=== PATIENT | male | born 1965 | race Caucasian/White ===

== ENCOUNTER → 2016-11-18 | Outpatient (CLI) | payer BC ==
--- NOTE | 2016-11-19 07:35 | PN ---
This patient is 51 with diagnosis of obstructive sleep apnea. He was given an AHI of 26 consistent with moderate severe disease and he is on CPAP pressure 12 cm water. I am seeing him for a ( ) follow-up. He is using a Mirage Quattro full face mask. His CPAP over the past month is 27 out of 30 and his CPAP use for more than 4 hours is 26 out of 30. He is averaging 7 hours of CPAP use per night. His leak factor is 46 L per minute. AHI is down to 4.6. He is doing well. Awake and alert during the day. No new complaints. For now, he is stabilized from treatment. His [place] score is at 8. BP is 117/73. Pulse 78. Respiratory rate 16. Temperature 98.0. Saturation 96% on room air. Weight is 251 which is up by another 9 pounds compared to two years ago. Height is 5 feet 9 inches. BMI 37.2. General appearance, calm, comfortable. HEENT: Short neck, crowding of posterior pharynx. There is no goiter. No neck masses. Lungs clear to auscultation. Heart sounds regular rate and rhythm. Normal S1, S2. No S3, no murmurs. Abdomen soft. Nontender. No organomegaly. Extremities no cyanosis, clubbing or edema. IMPRESSION: 1. Obstructive sleep apnea, moderate to severe, AHI 26, benefitting from treatment at pressure 12 cm water with adequate compliancy. 2. Obesity with interval 9 pound weight gain over the past two years. BMI is up to 37. 3. Hypertension. 4. Bronchial asthma. 5. Hypothyroidism. 6. Obesity. PLAN: 1. Proceed with the same CPAP pressure. 2. Renewal of the CPAP mask, supplies, ( ) filters and humidity chamber. 3. See me back in a year or two, earlier if needed. We will continue to follow. His treatment is successful for now. CHANTELL
== END ==
LOC: SLEEP 15:13
PROVIDERS: ATTEND Internal Medicine Critical Care Medicine
DX: E66.9 Obesity, unspecified (principal); E03.9 Hypothyroidism, unspecified; I10 Essential (primary) hypertension; J45.909 Unspecified asthma, uncomplicated; Z68.37 Body mass index [BMI] 37.0-37.9, adult; G47.33 Obstructive sleep apnea (adult) (pediatric)

== ENCOUNTER → 2020-03-07 | Outpatient (CLI) | payer BC ==
--- NOTE | 2020-03-07 14:15 | CONS ---
CONSULTATION DATE OF SERVICE: 03/07/2020 A 55-year-old gentleman who has been evaluated in the Sleep Center for obstructive sleep apnea-hypopnea syndrome. HISTORY OF PRESENT ILLNESS/SLEEP WAKE EVALUATION: Patient has history of moderate to severe obstructive sleep apnea since 2014. Since that time, he is on treatment with CPAP. He continued treatment every night for the whole night, recently increased weight from 230 pounds up to around 250 pounds. In the morning sometimes wakes up tired, has history of sexual dysfunction, but denying any sleepiness while driving. [place] Sleepiness Scale is 9. His sleep schedule from 9:30 - 10 p.m. until 5:30 a.m. No problems with falling asleep. No TV in bedroom. He sleeps in different position. He may wake up from sleep up to 3 times, but does not have any episodes of nocturia. No unusual movements during sleep. No kicking at night. No history of hypnagogic hallucinations, sleep paralysis or cataplexy. PAST MEDICAL HISTORY: Positive for bronchial asthma, hypertension, hypothyroidism, acid reflux. PAST SURGICAL HISTORY: Vasectomy. MEDICATIONS: Advair disc 10-50 once a day. Levothyroxine 25 mcg once a day, omeprazole 40 mg once a day, Atenolol 25 mg once a day, lisinopril 10 mg once a day, Sertraline 50 mg once a day, Zetia 10 mg once a day, Loratadine time 10 mg once a day, ibuprofen as needed, vitamin D3 and E supplement. SOCIAL HISTORY: Negative for smoking or using alcohol. FAMILY HISTORY: Hypertension, hyperlipidemia, arthritis, snoring, thyroid problems. REVIEW OF SYSTEMS: Sometimes awakenings from sleep. PHYSICAL EXAM: Patient in no distress, BP 128/65, HR 70, RR 15, height 5, 9-1/2, weight 249, BMI 36.2, temperature 97.8, oxygen saturation at room air 96%. OROPHARYNX: Low position of soft palate, wide neck 19 inches in circumference. ABDOMEN: Obese. NECK: Supple, no JVD. Thyroid is not palpable. LUNGS: Clear to percussion and to auscultation. Good air exchange. No wheezing or rhonchi. HEART: S1, S2 regular. No murmurs, gallops, or rubs. EXTREMITIES: No clubbing or cyanosis. CLIENT PROJECT COORDINATOR: Awake, alert, and oriented X3. Cranial nerves 2 to 7 intact. There is no fasciculation or atrophy. noted. No focal deficits observed. I checked the patient's CPAP unit. CPAP pressure is 12 cm of water, usage for the last month 29/30 nights with average usage 7.3 hours per night. Leak is 40 L/minute. Apnea- hypopnea index 2.3. I checked usage for the year is 364 nights out of 365 nights and 352 nights out of 365 nights for more than 4 hours. Average usage is 7.4 hours. Apnea-hypopnea index 2.8, which is normal. IMPRESSION: 1. Moderate obstructive sleep apnea-hypopnea syndrome. Apnea-hypopnea index 26 by results of polysomnogram about 5 years ago. Patient demonstrated 100% compliance with treatment, benefitting from treatment, normal respiration on CPAP. 2. Obesity, the patient increased his weight about 20 pounds since titration. 3. Asthma. 4. Hypertension. 5. Hypothyroidism. 6. Acid reflux. 7. Status post vasectomy. PLAN: 1. I increased pressure in CPAP unit to 13 cm of water. 2. Patient will continue to use CPAP equipment every night for the whole night. 3. Losing weight. 4. Sleep hygiene with regular time in bed for at least 7-1/2 - 8 hours. 5. Precautions related to driving. 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 No driving if feeling sleepiness. Patient promised to follow recommendations. He is aware of civil and criminal liability for unsafe driving. 6. Prescription for all necessary CPAP supplies, including full-face mask, heated tube, filters. Thank you very much for allowing me to participate in the management of your patient. Sincerely, Flakito Pearce MD, PhD, FAASM Diplomat of [place] [employer] [place] [employer] Counter Help of [facility] [place] MMODL / IJN: [id number] /
== END | disposition home or self-care (01) ==
LOC: SLEEP 11:20
PROVIDERS: ATTEND Internal Medicine
DX: G47.33 Obstructive sleep apnea (adult) (pediatric) (principal); J45.909 Unspecified asthma, uncomplicated; I10 Essential (primary) hypertension; E03.9 Hypothyroidism, unspecified; M19.90 Unspecified osteoarthritis, unspecified site; K21.9 Gastro-esophageal reflux disease without esophagitis; Z98.52 Vasectomy status; E66.9 Obesity, unspecified; Z99.89 Dependence on other enabling machines and devices; Z79.51 Long term (current) use of inhaled steroids; Z79.891 Long term (current) use of opiate analgesic; Z79.1 Long term (current) use of non-steroidal anti-inflammatories (NSAID); Z79.890 Hormone replacement therapy
CPT/HCPCS: 99211

== ENCOUNTER → 2020-10-25 | Outpatient (CLI) | payer BC ==
--- NOTE | 2020-10-25 14:58 | SFUN ---
SLEEP CENTER FOLLOW UP NOTE DATE OF SERVICE: 10/25/2020 55-year-old gentleman has been followed in Sleep Center for treatment of obstructive sleep apnea-hypopnea syndrome. Patient continued to use his CPAP equipment every night for the whole night. During previous visit, I increased his pressure in his CPAP unit to 13. He feels okay with that pressure. [place] Sleepiness Scale today is 8, which is in normal range. I checked his CPAP unit, pressure is 13 cm of water, usage is 28/30 nights for more than 4 hours with average usage 6.6 hours per night, which is good compliance. Leak is 24 L/minute which is borderline. Apnea-hypopnea index is 1.6, which is normal range. MEDICATIONS: Advair Diskus 100 mcg, 50 mcg dose powder for inhalation, atenolol 25 mg once a day, levothyroxine 25 mcg once a day, lisinopril 10 mg once a day. Loratadine 10 mg once a day. Omeprazole 40 mg delayed release once a day, sertraline 50 mg once a day, Zetia 10 mg once a day. Supplements with vitamin C and D, zinc, Livalo 2 mg once a day at bedtime. PHYSICAL EXAMINATION: GENERAL: Patient in no distress. BP 112/68, HR 66, RR 15, height 5 feet 9 inches and a half, weight 229, body mass index 33.3, temperature 97.7, oxygen saturation at room air 97% Oropharynx: Low position of soft palate. NECK: Supple, no JVD. Thyroid is not palpable. LUNGS: Clear to percussion and to auscultation. Good air exchange. No wheezing or rhonchi. HEART: S1, S2 regular. No murmurs, gallops, or rubs. ABDOMEN: Slightly obese. Soft and nontender. Bowel sounds are present. No organomegaly appreciated. EXTREMITIES: No clubbing or cyanosis. SUPERVISOR LOCOMOTIVE: Awake, alert, and oriented X3. Cranial nerves 2 to 7 intact. There is no fasciculation or atrophy. noted. No focal deficits observed. IMPRESSION: 1. Obstructive sleep apnea-hypopnea syndrome; apnea-hypopnea index 26 by results of polysomnogram 5 years ago. Patient continues to use his equipment practically every night. Good compliance. Normal aspiration on CPAP. 2. Obesity. 3. Asthma. 4. Hypertension. 5. Hypothyroidism. 6. Acid reflux. 7. Status post colectomy. PLAN: 1. Patient will continue to use PAP equipment every night for the whole night. 2. Sleep hygiene with regular time in bed for at least 7-1/2 to 8 hours. 3. Precautions related to driving. No driving if feeling sleepiness. 4. I will maintain all necessary prescription for PAP supplies including mask, tube, filters. 5. Watching weight. 6. Follow-up visit in 6 months or earlier if patient has any problems. I spent with the patient and documentation, 30 minutes. Thank you very much for allowing me to participate in management of your patient. Sincerely, Flakito Pearce MD, PhD, FAASM Diplomat of [employer] Sleep Medicine Board of [employer] Check Scaler of [facility] [place] KAILYN / OVI: [id number] /
== END ==
LOC: SLEEP 09:53
PROVIDERS: ATTEND Internal Medicine
DX: G47.33 Obstructive sleep apnea (adult) (pediatric) (principal); E66.9 Obesity, unspecified; J45.909 Unspecified asthma, uncomplicated; I10 Essential (primary) hypertension; E03.9 Hypothyroidism, unspecified; K21.9 Gastro-esophageal reflux disease without esophagitis; Z90.49 Acquired absence of other specified parts of digestive tract; Z79.890 Hormone replacement therapy; Z79.51 Long term (current) use of inhaled steroids; Z79.899 Other long term (current) drug therapy

== ENCOUNTER → 2021-05-01 | Outpatient (CLI) | payer BC ==
--- NOTE | 2021-05-01 20:38 | SFUN ---
SLEEP CENTER FOLLOW UP NOTE DATE OF SERVICE: 05/01/2021 This 56-year-old gentleman has been followed in Sleep Center for treatment of obstructive sleep apnea-hypopnea syndrome. The patient continues to use his CPAP equipment every night for the whole night, getting his supplies on time. [place] Sleepiness Scale today is 5. I checked his CPAP unit. The humidifier chamber is wet. CPAP pressure is 13 cm of water. Usage is 100% of nights for more than 4 hours, average 6.9 hours per night. Leak is 41 L/minute, which is slightly high. At the same time, apnea-hypopnea index is 2.3, which is normal. MEDICATIONS: 1. Advair 1 puff a day. 2. Atenolol 25 mg once a day. 3. Levothyroxine 25 mcg once a day. 4. Lisinopril 10 mg once a day. 5. Loratadine 10 mg once a day. 6. Omeprazole 40 mg once a day. 7. Sertraline 50 mg once a day. 8. Vitamin C, D3, E supplements. 9. Zetia 10 mg once a day. 10. 2 mg once a day. PHYSICAL EXAMINATION: GENERAL: Pleasant gentleman without distress. VITAL SIGNS: BP 115/72, HR 77, RR 14, height 5 feet 9 inches, weight 202.2, temperature 97.8, oxygen saturation at room air 96%. Body mass index 28.9. HEENT: PERRLA, EOMI, evaluation of oropharynx showed tongue protrudes midline. Low position of soft palate. NECK: Supple, no JVD. Thyroid is not palpable. LUNGS: Clear to percussion and to auscultation. Good air exchange. No wheezing or rhonchi. HEART: S1, S2 regular. No murmurs, gallops, or rubs. ABDOMEN: Soft and nontender. Bowel sounds are present. No organomegaly appreciated. EXTREMITIES: No clubbing or cyanosis. INSIGHTS MANAGER: Awake, alert, and oriented X3. Cranial nerves 2 to 7 intact. There is no fasciculation or atrophy. noted. No focal deficits observed. IMPRESSION: 1. Obstructive sleep apnea-hypopnea syndrome. Apnea-hypopnea index 26 by results of sleep study. Patient demonstrated 100% compliance with treatment. Totally normal respiration on CPAP. 2. Obesity. 3. Asthma. 4. Hypertension. 5. Acid reflux. 6. Hypothyroidism. 7. Status post colectomy. PLAN: 1. Patient will continue to use PAP equipment every night for the whole night. 2. Sleep hygiene with regular time in bed for at least 7-1/2 to 8 hours. 3. Precautions related to driving. No driving if feeling sleepiness. 4. I will maintain all necessary prescription for PAP supplies including mask, tube, filters. 5. Watching weight. 6. Follow-up visit in 6 months or earlier if patient has any problems. Thank you very much for allowing me to participate in the management of your patient. Sincerely, Flakito Pearce MD, PhD, FAASM Diplomat of [place] [employer] Sleep Medicine Board of [place] [employer] Medicine Resource Program Teacher of [facility] [place] MMODL / ANNEN: [id number] /
== END ==
LOC: SLEEP 09:53
PROVIDERS: ATTEND Internal Medicine
DX: G47.33 Obstructive sleep apnea (adult) (pediatric) (principal); E66.9 Obesity, unspecified; J45.909 Unspecified asthma, uncomplicated; I10 Essential (primary) hypertension; K21.9 Gastro-esophageal reflux disease without esophagitis; E03.9 Hypothyroidism, unspecified; Z99.89 Dependence on other enabling machines and devices; Z68.28 Body mass index [BMI] 28.0-28.9, adult; Z90.49 Acquired absence of other specified parts of digestive tract; Z79.890 Hormone replacement therapy; Z79.899 Other long term (current) drug therapy

== ENCOUNTER → 2022-04-23 | Outpatient (CLI) | payer BC ==
--- NOTE | 2022-04-23 13:46 | P.PN ---
Subjective DATE: 04/23/2022 FOLLOW UP VISIT. Patient with obstructive sleep apnea hypopnea syndrome return to sleep center for follow-up visit. Information from previous visit have been reviewed. Patient is using PAP equipment every night for the whole night, getting PAP supplies in time. The patient does not have significant problems with the mask, PAP unit and humidification. [place] sleepiness scale is 8, which is normal. I checked information from PAP unit. PAP unit pressure 13 cm H2O. Usage is 100 % for more then 4 hours, average 6.3 hours per night. Leak is 19 l/m, which is in acceptable range. Apnea Hypopnea Index is 1.1, which is normal. MEDICATIONS:1. Atenolol 25 mg once a day 2. Levothyroxine 25 g once a day 3. Lisinopril 10 mg once a day 4. Loratidine 10 mg once a day 5. Omeprazole 40 mg once a day 6. Sertraline 50 mg once a day 7. Zetia 10 mg once a day 8. Livalo 2 mg once a day 9. Advair During physical exam: GENERAL: A pleasant patient without any distress. VITAL SIGNS: BP 118/80, HR 86, RR 14 , weight 223.8, temperature 97.6, oxygen saturation at room air 95 % . HEENT: PERRLA, EOMI.low position of soft palate . NECK: Supple. No JVD. LUNGS: Clear to percussion and to auscultation. Good air exchange. No wheezing or rhonchi. HEART: S1, S2 regular. ABDOMEN: Soft and nontender. Obese EXTREMITIES: No clubbing or cyanosis. HOME ADMINISTRATOR: Awake, alert, and oriented x3. No focal deficit. Impressions: 1. Obstructive sleep apnea-hypopnea syndrome. Patient demonstrated great compliance with treatment, benefiting from treatment. 2. Obesity, patient increased his weight on 21 pounds comparing with previous visit. 3. Hypertension. 4. Asthma. 5. Acid reflux. 6. Hypothyroidism. 7. Status post colorectal ectomy. Plan: 1. Continue using PAP equipment every night for the whole night. 2. To change air filter at least 1-2 times per month. 3. PAP unit should stay lower then position of the head. 4. Advised patient to remove all remaining water from humidifier canister daily and make it dry after each usage. Refill canister with fresh distilled water before each usage. 5. Sleep hygiene with regular time in bed for at least 8 hours. 6. Precautions related to driving. No driving if feel any sleepiness. 7. I will maintain prescription for PAP supplies including mask, tube, filters. 8. Follow up visit in 6 months or earlier if patient has any problems. 9. Watching and losing weight. Thank you very much for allowing me to participate in the management of your patient. Flakito Pearce MD, PhD, FAASM. Diplomat of [place] [employer], Sleep Medicine Board by [place] [employer] Cookie Mixer Helper of [facility] [place]
== END ==
LOC: SLEEP 13:00
PROVIDERS: ATTEND Internal Medicine
DX: G47.33 Obstructive sleep apnea (adult) (pediatric) (principal); Z99.89 Dependence on other enabling machines and devices; E66.9 Obesity, unspecified; I10 Essential (primary) hypertension; J45.909 Unspecified asthma, uncomplicated; K21.9 Gastro-esophageal reflux disease without esophagitis; E03.9 Hypothyroidism, unspecified; Z90.49 Acquired absence of other specified parts of digestive tract
CPT/HCPCS: 99212

== ENCOUNTER → 2023-01-28 | Outpatient (CLI) | payer BC ==
--- NOTE | 2023-01-28 17:49 | P.PN ---
Subjective DATE: 01/28/2023 FOLLOW UP VISIT. Patient with obstructive sleep apnea hypopnea syndrome return to sleep center for follow-up visit. Information from previous visit have been reviewed. Patient is using PAP equipment every night for the whole night, getting PAP supplies in time. The patient does not have significant problems with the mask, PAP unit and humidification. [place] sleepiness scale is 8, which is normal. I checked information from PAP unit. PAP unit pressure 13 cm H2O. Usage is 98 % for more then 4 hours, average 6.5 hours per night. Leak is 24 l/m, which is in acceptable range. Apnea Hypopnea Index is 1.3, which is normal. MEDICATIONS:1. Levothyroxine 25 g once a day 2. Lisinopril 10 mg once a day 3. Loratidine 10 mg once a day 4. Omeprazole 40 mg once a day 5. Sertraline 50 mg once a day 6. Advair During physical exam: GENERAL: A pleasant patient without any distress. VITAL SIGNS: BP 135/87, HR 80, RR 16, weight 234.8, temperature 97.6, oxygen saturation at room air 95 % . HEENT: PERRLA, EOMI.low position of soft palate, [place] 3 . NECK: Supple. No JVD. LUNGS: Clear to percussion and to auscultation. Good air exchange. No wheezing or rhonchi. HEART: S1, S2 regular. ABDOMEN: Soft and nontender.[] EXTREMITIES: No clubbing or cyanosis. CORE EXTRUDER: Awake, alert, and oriented x3. No focal deficit. Impressions: 1. Obstructive sleep apnea-hypopnea syndrome. Patient demonstrated great compliance with treatment, benefiting from treatment. 2. Hypertension. 3. Asthma. 4. Acid reflux. 5. Obesity. 6. Hypothyroidism. 7. Status post colorectal ectomy. Plan: 1. Continue using PAP equipment every night for the whole night. 2. To change air filter at least 1-2 times per month. 3. PAP unit should stay lower then position of the head. 4. Advised patient to remove all remaining water from humidifier canister daily and make it dry after each usage. Refill canister with fresh distilled water before each usage. 5. Sleep hygiene with regular time in bed for at least 8 hours. 6. Precautions related to driving. No driving if feel any sleepiness. 7. I will maintain prescription for PAP supplies including mask, tube, filters. 8. Watching and losing weight. 9. Follow up visit in 6 months or earlier if patient has any problems. Thank you very much for allowing me to participate in the management of your patient. Flakito Pearce MD, PhD, FAASM. Diplomat of [place] [employer], Sleep Medicine Board by [place] [employer] Lock Setter of [facility] [place]
== END ==
LOC: 3 N SLEEP 15:36
PROVIDERS: ATTEND Internal Medicine
DX: G47.33 Obstructive sleep apnea (adult) (pediatric) (principal); I10 Essential (primary) hypertension; J45.909 Unspecified asthma, uncomplicated; E03.9 Hypothyroidism, unspecified; E66.9 Obesity, unspecified; K21.9 Gastro-esophageal reflux disease without esophagitis; Z79.890 Hormone replacement therapy; Z79.51 Long term (current) use of inhaled steroids; Z79.899 Other long term (current) drug therapy; Z99.89 Dependence on other enabling machines and devices; Z90.49 Acquired absence of other specified parts of digestive tract
CPT/HCPCS: 99212